=== PATIENT | female | born 1990 | race African-American/Black ===

== ENCOUNTER 2020-02-26 09:56 | Emergency (ER) | payer OTHER, SELFPAY ==
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
[2020-02-26 10:24] VITALS: BP 129/84; PULSE 98; RESP 16; TEMP 36.6; O2SAT 99
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
== END 2020-02-26 12:03 | disposition home or self-care (01) ==
PROVIDERS: Emergency Provider Nurse Practitioner Family
DX: M54.5 Low back pain (principal); M79.632 Pain in left forearm; T14.8XXA Other injury of unspecified body region, initial encounter; V43.62XA Car passenger injured in collision with other type car in traffic accident, initial encounter
CPT/HCPCS: 72100; 73090; 74018; 81003; 99214; G0463

== ENCOUNTER 2020-04-23 12:30 | Outpatient (RCR) | payer OTHER, SELFPAY ==
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
--- NOTE | 2020-04-09 12:40 | PCPTNOTE ---
pt called and canceled due to not feeling well;
--- NOTE | 2020-04-21 11:09 | PCPTNOTE ---
pt called and canceled/rescheduled reeval due to bad weather;
--- NOTE | 2020-04-23 13:22 | PTOPEVAL ---
PHYSICAL THERAPY DISCHARGE 04-23-20 Refer to the clinical summary below for her status at today's reevaluation, compared to the initial evaluation. PT will be discharged at this time, with Ms. Crow to continue with her home exercise program and strengthening her trunk and hips. Thank you for referring Ava Crow to [facility].? Please review, sign, date and return this discharge HODAN. I agree with and certify that the following plan of care is medically necessary. Referring Physician Date Attending Provider: Oralia Lindo NP PT Discharge Subjective Information Ava reports: back is Query Text:As Reported By Patient/ doing better- exercises and Family stretches are helping; only have pain when bending down or sitting too long, sit over 2 hours at computer at work; have resigned from [employer] due to increase in back pain, to 7/10 with bending over and standing, stocking; Pain Assessment Timing of Pain Assessment Timing of Pain Assessment Assessment Pain Scale Pain Scale Used Numeric (1 - 10) Self Report Pain Assessment Bilateral Back Reported Pain Level 1 Pain Description Dull,Tightness Other Pain Description no sharp pain or aching in back Lowest Pain Intensity 0 Greatest Pain Intensity 3 Pain Aggravating Factors Sitting Other Pain Aggravating Factors sit over 2 hours Additional Pain Comments can sleep through night without awakening; Pain Score Pain Score 1: Self Report Additional Pain Score Comments Oswestry self assessment functional score of 24% limitation. Interventions Used Interventions Used By Clinicians Education,Exercise Cervical and Lumbar ROM Lumbar ROM Lumbar Comments standing trunk ROM:flexion- n; extension; rotation to R and L, - all WNL without any increase pain; Lower Extremity Range of Motion General Lower Extremity Range of Motion Gross Lower Extremity Range of Motion supine R & L Hip: flexion, IR Comments and ER ranges WNL without pain reported; B hamstring stretch with SLR to 85' without pain; prone knee flexion R/L stretch to 150' without pain Lower Extremity Muscle Strength Testing General Lower Extremity Strength Gross Lower Extremity Strength B UE max Lift floor/waist 35#
== END 2020-04-23 15:01 | disposition home or self-care (01) ==
LOC: ANHPT 12:30
PROVIDERS: Family Provider Pediatrics; PCP Internal Medicine; Visit Provider Internal Medicine
DX: M54.5 Low back pain (principal)
CPT/HCPCS: 97014; 97110; 97161; G0283

== ENCOUNTER 2020-09-01 15:10 | Outpatient (CLI) | payer OTHER, SELFPAY ==
--- NOTE | ~2020-09-01 | US_ITS ---
EXAMINATION: US abdomen complete DATE: 09/01/2020 15:49 INDICATION: Upper abdominal pain TECHNIQUE: Multiple grayscale and Doppler ultrasound images of the abdomen were obtained. COMPARISON: None available FINDINGS: Bowel gas obscures visualization of the pancreas. The visualized portions of the pancreas a re unremarkable. The liver is normal with normal echogenicity and echotexture. No surface nodularity. Normal hepatopetal flow in the main portal vein. The gallbladder is normal with no abnormal wall thi ckening, pericholecystic fluid or stones. The normal common bile duct measures 3 mm. There was no son ographic Umanzor sign. The visualized portions of the aorta and inferior vena cava are normal. The right kidney measures 9.8 x 5.3 x 3.7 cm. The left kidney measures 9.4 x 4.6 x 4.9 cm. The kidney s demonstrate normal parenchymal echogenicity. There is no hydronephrosis. The spleen is normal in ap pearance and measures 6.4 cm. IMPRESSION: 1. No sonographic correlate for the patient's symptoms. Reviewed, dictated and finalized at location B.
== END 2020-09-01 15:11 | disposition home or self-care (01) ==
LOC: ANHIMG 15:15
PROVIDERS: PCP Internal Medicine; Visit Provider Nurse Practitioner
DX: R10.10 Upper abdominal pain, unspecified (principal)
CPT/HCPCS: 76700

== ENCOUNTER 2020-09-10 13:39 | Outpatient (CLI) | payer OTHER, SELFPAY ==
--- NOTE | ~2020-09-10 | CT_ITS ---
EXAMINATION: CT abdomen pelvis w con DATE: 09/10/2020 14:30 INDICATION: Upper abdominal pain, postprandial discomfort. Nausea and vomiting. Constipation for 10 d ays. TECHNIQUE: Computed tomography (CT) of the abdomen and pelvis was performed with 100 cc Omnipaque 350 intravenous contrast. Automated exposure control and iterative reconstruction technique were employe d. Exam dose: 466.43 mGy-cm total exam DLP. COMPARISON: 09/01/2020 complete abdominal ultrasound FINDINGS: The included lower lung zones are clear. Normal heart size. No pericardial or pleural effusion. The liver, gallbladder, bile ducts, spleen, pancreas, pancreatic duct, and adrenal glands and kidneys appear normal. Normal caliber of the abdominal aorta. No intraperitoneal or retroperitoneal or pelvi c mass lesion or adenopathy or ascites. The uterus, adnexal areas and urinary bladder are unremarkabl e. No bowel obstruction, bowel wall thickening, pneumatosis or intraperitoneal free air is detected. Included skeletal structures are unremarkable. IMPRESSION: No significant abnormality Reviewed, dictated and finalized at Location A. Reviewed, dictated and finalized at location A. IMPRESSION: No significant abnormality
== END 2020-09-10 13:40 | disposition home or self-care (01) ==
LOC: ANHIMG 13:44
PROVIDERS: PCP Internal Medicine; Visit Provider Nurse Practitioner
DX: R10.10 Upper abdominal pain, unspecified (principal); R19.8 Other specified symptoms and signs involving the digestive system and abdomen
CPT/HCPCS: 74177; Q9967

== ENCOUNTER 2021-01-26 19:37 | Emergency (ER) | payer OTHER, SELFPAY ==
[2021-01-26 19:44] VITALS: BP 120/79; PULSE 86; RESP 12; TEMP 36.6; O2SAT 100
--- NOTE | 2021-01-26 19:53 | ED.ALLEREA ---
HPI - Allergic Reaction General Chief complaint: Allergic Reaction Stated complaint: REACTION TO FLU SHOT Time Seen by Provider: 01/26/21 19:53 Source: patient Mode of arrival: ambulatory Limitations: no limitations History of Present Illness HPI narrative: Ava Crow is a 30-year-old female with no PMH who [facility] with a sore and swollen L arm from flu shot that she took on Sunday Related Data Home Medications Medication Instructions Recorded Confirmed No Home Medications 01/26/21 01/26/21 Allergies Allergy/AdvReac Type Severity Reaction Status Date / Time No Known Allergies Allergy Verified 01/26/21 19:40 Review of Systems Review of Systems: CONSTITUTIONAL: Denies fever, chills, sweats. EYES: Denies visual changes, redness, discharge. ENT: Denies rhinorrhea, congestion, sore throat, otalgia. CARDIOVASCULAR: Denies chest pain, palpitations, edema. RESPIRATORY: Denies dyspnea, wheezing, cough GASTROINTESTINAL: Denies abdominal pain, nausea, vomiting, diarrhea. GENITOURINARY: Denies dysuria, hematuria, abnormal discharge SKIN: Denies rash or itching. NEUROLOGIC: Denies numbness, or focal weakness. PSYCHIATRIC: Denies anxiety or depression. Left arm vaccine reaction-swelling and tender PMFSH Past Medical History Medical History Acid reflux Allergies Anxiety Headache, migraine Pneumonia Surgical History Surgical History [place] teeth removed Family History Family History Father Diabetes mellitus Hypertension Mother Hypertension Heart disease Grandparent Cerebrovascular accident Breast cancer Social History Social History Smoking status: Never smoker Second hand tobacco smoke exposure: No Alcohol intake: current Drinks per week: 3 Substance use: never Gender identity (if verbalized by the patient): Female Sexual Orientation (if Verbalized by the Patient): Straight or Heterosexual Comments At time of signature, I agree with nursing past medical, surgical, social and family history. There is no relevant family history pertinent to the presenting complaint. Exam Narrative: GENERAL: This is a well-nourished, well-developed patient, in mild distress. HEAD: normocephalic, atraumatic. EYES: PERRL. Sclera clear/white. Vision is grossly intact. EARS: External ears normal,. Hearing grossly intact. NOSE: External nose normal without nasal discharge, nares without redness, no rhinorrhea. THROAT: Mucous membranes moist, NECK: Neck supple, non-tender CARDIOVASCULAR: Regular rate and rhythm without murmurs, gallops, or rubs. RESPIRATORY: Clear to auscultation. Breath sounds equal bilaterally. No wheezes, rales, or rhonchi. GASTROINTESTINAL: Abdomen soft, non-tender, SKIN: warm, intact with 10x9 cm area of swelling, warmth, no induration L deltoid NEURO: awake, alert, and oriented to person, place and time. There were no obvious focal neurologic abnormalities. Steady gait EXTREMITIES: Normal range of motion. BACK: Nontender without deformity Course Course Emergency Course: Patient got flu vaccine on Sunday Has a reaction to the left deltoid that measures 10 x 9 and is warm and mildly swollen with no induration Patient works for [employer] and is here for documentation of the vaccine reaction She is to continue taking Benadryl may use ice or ibuprofen for pain May use hydrocortisone cream to skin Vital Signs Vital signs: Vital Signs Temperature 97.9 F 01/26/21 19:44 Pulse Rate 86 01/26/21 19:44 Respiratory Rate 12 01/26/21 19:44 Blood Pressure 120/79 01/26/21 19:44 Pulse Oximetry 100 01/26/21 19:44 Temperature 97.9 F 01/26/21 20:01 Pulse Rate 86 01/26/21 20:01 Respiratory Rate 12 01/26/21 20:01 Blood Pressure 120/79 01/04
[2021-01-26 20:01] VITALS: BP 120/79; PULSE 86; RESP 12; TEMP 36.6; O2SAT 100
== END 2021-01-26 20:08 | disposition home or self-care (01) ==
PROVIDERS: Emergency Provider Nurse Practitioner; PCP Internal Medicine
DX: R22.32 Localized swelling, mass and lump, left upper limb (principal); T50.B95A Adverse effect of other viral vaccines, initial encounter
CPT/HCPCS: 99211; G0463

== ENCOUNTER 2021-03-01 18:38 | Emergency (ER) | payer OTHER, SELFPAY ==
[2021-03-01 18:43] VITALS: BP 139/93; PULSE 104; RESP 12; TEMP 36.7; O2SAT 99
--- NOTE | 2021-03-01 18:53 | ED.SKABFB ---
HPI - Skin/Abscess/Foreign Bdy General Chief complaint: Skin/Abscess/Foreign Body Stated complaint: RASH/ITCHING/PAIN Time Seen by Provider: 03/01/21 19:03 Source: patient and RN notes reviewed Mode of arrival: ambulatory Limitations: no limitations History of Present Illness HPI narrative: 30-year-old female presents with concern for red bumps on the back of her thighs and several scattered bumps generalized. Reports she just returned from [place] and was on the beach. She reports noticing the bumps yesterday. Reports she used Benadryl which made her sleepy. She denies swollen lips, swollen tongue, trouble swallowing, trouble breathing. MD complaint: rash Related Data Allergies Allergy/AdvReac Type Severity Reaction Status Date / Time No Known Allergies Allergy Verified 01/26/21 19:40 Review of Systems Review of Systems: CONSTITUTIONAL: Denies malaise, chills, sweats, or fever. EYES: Denies visual changes, redness, or discharge. ENT: Denies swollen lips, swollen tongue CARDIOVASCULAR: Denies chest pain, palpitations, or edema. RESPIRATORY: Denies cough or dyspnea. SKIN: Reports itchy red bumps to the back of her legs MUSCULOSKELETAL: Denies myalgia. All systems reviewed & are unremarkable except as noted in HPI and below PMFSH Past Medical History Medical History Acid reflux Allergies Anxiety Headache, migraine Pneumonia Surgical History Surgical History [place] teeth removed Family History Family History Father Diabetes mellitus Hypertension Mother Hypertension Heart disease Grandparent Cerebrovascular accident Breast cancer Social History Social History Smoking status: Never smoker Second hand tobacco smoke exposure: No Alcohol intake: current Drinks per week: 3 Substance use: never Gender identity (if verbalized by the patient): Female Sexual Orientation (if Verbalized by the Patient): Straight or Heterosexual Comments At time of signature, agree with nursing past medical, surgical, social and family history. There is no relevant family history pertinent to the presenting complaint Exam Narrative: GENERAL: Well-appearing, well-nourished, and in no acute distress. HEAD: Normocephalic, atraumatic. EYES: PERRLA, conjunctivae clear ENT: Mucous membranes moist. Oropharynx without edema, erythema or lesions. NECK: Supple. No lymphadenopathy CHEST: Clear to auscultation. No respiratory distress. HEART: Regular rate and rhythm. SKIN: Warm, dry. Scattered erythematous papules some in clusters noted to the back of the bilateral thighs, satellite bumps noted to lower legs and neck NEURO: Alert and oriented x3. PSYCH: Normal mood and affect Course Course Emergency Course: Patient is aware of diagnosis, understands and agrees to treatment plan. Anticipatory guidance given. Patient agrees to follow-up as directed and is aware of reasons to seek care at the emergency department. Portions of this record may have been created with voice recognition software Vital Signs Vital signs: Vital Signs Temperature 98.1 F 03/01/21 18:43 Pulse Rate 104 H 03/01/21 18:43 Respiratory Rate 12 03/01/21 18:43 Blood Pressure 139/93 H 03/01/21 18:43 Pulse Oximetry 99 03/01/21 18:43 Temperature 98.1 F 03/01/21 18:43 Pulse Rate 104 H 03/01/21 18:43 Respiratory Rate 12 03/01/21 18:43 Blood Pressure 139/93 H 03/01/21 18:43 Pulse Oximetry 99 03/01/21 18:43 Reviewed. Patient has been instructed to follow up with her primary care provider within the next week regarding her elevated blood pressure today. MDM - Skin/Abscess/Foreign Bdy MDM Narrative Medical decision making narrative: Does not appear at this time to be erythema multiforme, bullous, SJS, TEN; no evide
== END 2021-03-01 19:17 | disposition home or self-care (01) ==
PROVIDERS: Emergency Provider Nurse Practitioner; PCP Internal Medicine
DX: S70.362A Insect bite (nonvenomous), left thigh, initial encounter (principal); S70.361A Insect bite (nonvenomous), right thigh, initial encounter; W57.XXXA Bitten or stung by nonvenomous insect and other nonvenomous arthropods, initial encounter; K21.9 Gastro-esophageal reflux disease without esophagitis
CPT/HCPCS: 99213; G0463

== ENCOUNTER → 2021-12-09 11:06 | Outpatient (CLI) | payer BC, SELFPAY ==
--- NOTE | ~2021-12-09 | US_ITS ---
US soft tissue head and neck 12/09/2021 11:25 Indication: Palpable left neck lumps for 3 days Procedure: High-resolution ultrasound of the left neck Comparison: No prior studies for comparison. Findings: There are multiple lymph nodes in the area of palpable concern which demonstrate effacement of there fatty hilum. Largest lymph node measures 1.3 x 1 x 0.5 cm. Impression: 1: Mild left cervical lymphadenopathy with effacement of normal fatty hilum in the lymph nodes. Large st lymph node measures up to 1.3 cm. Consider correlation with contrast-enhanced CT neck. Reviewed, dictated and finalized at location A. Impression: 1: Mild left cervical lymphadenopathy with effacement of normal fatty hilum in the lymph nodes. Largest lymph node measures up to 1.3 cm. Consider correlation with contrast-enhanced CT neck.
== END ==
PROVIDERS: PCP Nurse Practitioner; Visit Provider Nurse Practitioner
DX: R59.0 Localized enlarged lymph nodes (principal)
CPT/HCPCS: 76536

== ENCOUNTER 2022-04-10 09:11 | Outpatient (CLI) | payer OTHER, SELFPAY ==
--- NOTE | ~2022-04-10 | US_ITS ---
EXAMINATION: US venous doppler [facility] DATE: 04/10/2022 12:43 INDICATION: Left lower limb pain TECHNIQUE: [place] scale images without and with compression and Doppler images of the left lower extrem ity veins were obtained. COMPARISON: None FINDINGS: The left common femoral vein, profunda femoral vein, femoral vein, popliteal vein, peroneal trunk, posterior tibial veins, and greater saphenous vein are patent. IMPRESSION: 1. Patent left lower extremity veins. No evidence of deep venous thrombosis. Reviewed, dictated and finalized at location B. 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
--- NOTE | ~2022-04-10 | CT_ITS ---
CT scan of the Neck Technique: 2.5 mm axial scans were obtained through the neck after intravenous administration of 75 c c Omnipaque 350. Coronal and sagittal reconstructions of the neck were obtained. Dose reduction techn ique was used on this scan by utilizing automated exposure control and iterative reconstruction techn ique. The dose-length product (DLP) was 399.32 mGy-cm. Clinical History: Lymphadenopathy Findings: There is no evidence of any significant cervical lymphadenopathy. Several small, nonenlarged jugulo- digastric and posterior cervical lymph nodes are noted bilaterally. Parapharyngeal spaces appear norm al bilaterally. The parotid and submandibular glands appear normal. The pharyngeal mucosal spaces appear normal. No soft tissue masses are seen in the neck. The thyroid gland appears normal. Images of the lung apices reveal no abnormalities. Reversal normal cervical lordosis noted. Impression: No lymphadenopathy seen. Reversal of the normal cervical lordosis. Reviewed, dictated and finalized at [facility]. 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 Reversal of the normal cervical lordosis.
== END 2022-04-10 09:12 | disposition home or self-care (01) ==
PROVIDERS: PCP Internal Medicine; Visit Provider Nurse Practitioner
DX: R59.1 Generalized enlarged lymph nodes (principal); M79.662 Pain in left lower leg; M79.89 Other specified soft tissue disorders
CPT/HCPCS: 70491; 93971; Q9967

== ENCOUNTER 2023-04-05 08:23 | Outpatient (CLI) | payer BC, SELFPAY ==
[2023-04-05 13:11] LABS: Basophils Percent Auto 0.9 % (0.2-1.2); Eosinophils Absolute Auto 0.1 K/mm3 (0-0.3); Eosinophils Percent Auto 1.8 % (0-4.4); Hematocrit 36.4 % (37.0-47.0); Hemoglobin 11.6 g/dL (12.0-15.0); Immature Granulocyte Absolute 0.01 K/mm3 (0.00-0.031); Immature Granulocyte Percent A 0.2 % (0-0.5); Lymphocytes Absolute Auto 1.49 K/mm3 (0.9-3.2); Lymphocytes Percent Auto 32.7 % (18.3-44.2); Mean Corpuscular HGB Conc 31.9 g/dl (32-36); Mean Corpuscular Hemoglobin 28.7 pg (26-34); Mean Corpuscular Volume 90.1 fl (80-100); Mean Platelet Volume 9.9 fl (7.4-10.4); Monocytes Absolute Auto 0.5 K/mm3 (0.1-0.6); Monocytes Percent Auto 10.3 % (2.6-8.5); Neutrophils Absolute Auto 2.5 K/mm3 (1.3-6.7); Neutrophils Percent Auto 54.1 % (45.5-73.1); Platelet Count Result 334 k/mm3 (150-375); Red Blood Count 4.04 M/mm3 (4.2-5.4); Red Cell Distribution Width 13.6 % (11.5-14.5); White Blood Count 4.6 K/mm3 (4.5-10.0)
[2023-04-05 13:40] LABS: Alanine Aminotransferase 22 U/L (6-35); Albumin Level 4.4 g/dL (3.5-5.1); Alkaline Phosphatase 63 U/L (38-126); Anion Gap 9 mmol/L (8-16); Aspartate Amino Transferase 40 U/L (14-36); Bilirubin,Total 0.3 mg/dL (0.2-1.3); Blood Urea Nitrogen 17 mg/dL (7-17); Calcium 9.5 mg/dL (8.4-10.2); Carbon Dioxide 26 mmol/L (22-30); Chloride 102 mmol/L (98-107); Cholesterol 189 mg/dL (0-200); Estimated Glomerular Filt Rate > 60; Glucose 79 mg/dL (65-110); HDL Direct 86 mg/dL; Potassium 4.5 mmol/L (3.4-5.0); Sodium 137 mmol/L (137-145); Triglycerides 86 mg/dL (<150)
[2023-04-05 13:51] LABS: LDL Cholesterol Direct 81 mg/dL
[2023-04-07 12:14] LABS: NIL 0.01 IU/mL; Quantiferon TB Plus, 1T NEGATIVE (NEGATIVE); TB2-NIL 0.01 IU/mL
[2023-04-08 11:03] LABS: Insulin Level Total 10.5 uIU/mL (<=18.4)
== END 2023-04-05 08:24 | disposition home or self-care (01) ==
LOC: ANHGOSHLAB 08:25
PROVIDERS: PCP Internal Medicine; Visit Provider Nurse Practitioner
DX: Z11.1 Encounter for screening for respiratory tuberculosis (principal); Z13.220 Encounter for screening for lipoid disorders; Z13.29 Encounter for screening for other suspected endocrine disorder; Z83.3 Family history of diabetes mellitus
CPT/HCPCS: 36415; 80053; 80061; 83525; 85025; 86480

== ENCOUNTER 2023-05-24 11:01 | Outpatient (CLI) | payer BC, SELFPAY ==
--- NOTE | ~2023-05-24 | US_ITS ---
EXAMINATION: US soft tissue head and neck DATE: 05/24/2023 11:21 INDICATION: Generalized enlarged cervical lymph nodes TECHNIQUE: Multiple grayscale and Doppler ultrasound images of the left neck were obtained. COMPARISON: Ultrasound dated 12/09/[address] dated 04/10/2022 FINDINGS: There is a mildly prominent but still normal-sized left jugular chain lymph node measuring 2.3 x 1.2 x 0.7 cm. There are a few additional smaller left jugular chain lymph nodes. IMPRESSION: 1. Mildly prominent but still normal-sized left internal jugular chain lymph node measuring 7 mm in m aximal short axis diameter. No pathologically enlarged lymphadenopathy or other abnormal masses or fl uid collections identified. Reviewed, dictated and finalized at location A. IMPRESSION: 1. Mildly prominent but still normal-sized left internal jugular chain lymph no de measuring 7 mm in maximal short axis diameter. No pathologically enlarged ly mphadenopathy or other abnormal masses or fluid collections identified.
== END 2023-05-24 11:02 ==
PROVIDERS: PCP Internal Medicine; Visit Provider Nurse Practitioner
DX: R59.1 Generalized enlarged lymph nodes (principal)
CPT/HCPCS: 76536